=== PATIENT | male | born 1975 | race Caucasian/White ===

== ENCOUNTER → 2017-05-02 | Outpatient (CLI) | payer BC ==
[~2017-05-02] MED LIST: AMT50 PO; ATV1 PO; CALC500C3 PO; CETI10TA10 PO; CLR10 PO; CYCL10TA6 PO; EYED OPR; FLUT0.15 NAE; GABA-113 PO; METFTAB PO; MULT-506 PO; NORCO PO; PANT40TA PO; RXC5 PO
--- NOTE | 2017-05-02 09:57 | DIAGNOSTIC IMAGING REPORT ---
Soft tissue ultrasound of the left ELBOW REGION CLINICAL HISTORY: Left arm mass COMPARISON STUDY: None FINDINGS: Corresponding to the palpable abnormality, is a nonspecific irregularly marginated 8 x 3 x 8 mm hypoechoic focus within the subcutaneous tissues. This have a nonspecific ultrasound appearance. IMPRESSION: The patient's palpable abnormality, near the elbow, corresponds to a irregularly marginated hypoechoic 8 x 3 x 8 mm focus within the subcutaneous tissues. This lesion has a nonspecific ultrasonographic appearance. Further characterization is not possible ultrasonographically. Electronically signed by: Joe Lopez M.D. 05/02/2017 9:55 AM Dictated Date/Time: 05/02/2017 9:52 AM
== END | disposition home or self-care (01) ==
LOC: C.ULTR 09:21
PROVIDERS: ATTEND Family Medicine
DX: R22.30 Localized swelling, mass and lump, unspecified upper limb (principal)

== ENCOUNTER 2019-05-23 10:58 | Observation (INO) ==
[2019-05-23] MEDS ORDERED: NiCARDipine HCL INJ 2.5 MG/ML 10 ML AMP ONE (11:16)
[2019-05-23] MEDS ORDERED: HEPARIN (PORCINE) 1000 UNIT/ML 10 ML (CATH LAB USE ONLY) ONE ×2 (11:16→13:40)
[2019-05-23] MEDS ORDERED: fentaNYL citrate 100 MCG/2 ML VIAL ONE ×2 (11:17→13:48)
[2019-05-23] MEDS ORDERED: MIDAZOLAM HCL 1 MG/ML 2ML VIAL ONE ×2 (11:18→13:48)
[2019-05-23] MEDS ORDERED: NITROGLYCERIN/D5W 100MCG/ML 20ML SYR ONE (11:19)
[2019-05-23] MEDS ORDERED: ADENOSINE IV SOLN 3 MG/ML 20 ML VIAL IV ONE (12:45)
--- NOTE | 2019-05-23 12:55 | History & Physical Bridge Note ---
Date of Service May 23, 2019 History & Physical Bridge Note I have examined the patient, reviewed the History & Physical and in the interval since the performance of the History & Physical I have noted the following changes of clinical significance: no changes noted
--- NOTE | 2019-05-23 12:57 | Pre Anesthesia Assessment ---
Date of Service May 23, 2019 Pre Sedation Assessment Vital Signs Temp Pulse Resp BP Pulse Ox 05/23/19 11:19 98.2 F 90 18 133/87 98 Cardiovascular RRR, no murmur, no edema Respiratory normal respiratory effort, lungs clear to auscultation Pre-Sedation Airway Assessment Smoking Status: Former smoker Hx Sleep Apnea: No Hx Difficult Intubation: No Short, Thick Neck: No Thyromental Distance: > or= 3.5 Finger Breadths Oral Cavity: + WNL Mallampati Class: I ASA: ASA2 NPO Status Date of Last Intake of Fluids: 05/22/19 Date of Last Intake of Solid Food: 05/22/19 Procedure Planning Contraindications for Sedation: none Current Medications Reviewed: Yes Notes The planned sedation has been discussed with the patient. Informed Consent was obtained. I have identified the patient, determined the appropriateness of sedation and have assessed the patient immediately prior to the procedure. All medicine(s) and interventions are by my order.
[2019-05-23] MEDS ORDERED: ONDANSETRON INJ 2 MG/ML 2 ML VIAL IV PRN (14:11)
--- NOTE | 2019-05-23 14:11 | Post Anesthesia Assessment ---
Date of Service May 23, 2019 Post Sedation Assessment Vital Signs Temp Pulse Resp BP Pulse Ox 05/23/19 11:19 98.2 F 90 18 133/87 98 Recovery Score Activity: Moves 4 extremities Respiration: Deep Breath/Cough Circulation: +/-20% PreAnes Value Consciousness: Fully Awake Oxygen Saturation: O2 needed for >90% Discharge Sedation Level of Care: Fast Track Phase II Post Sedation Plan On clinical assessment, the patient appears to have tolerated the sedation without complications. Patient is recovering as anticipated. Patient will continue to be monitored by nursing and may be discharged when sedation discharge criteria are met per below protocol. Upon Completions of procedure and additional 15 minutes continue every 5 minute vital signs and the P.A.R. score; then discharge to a Phase I or Fast Track to [facility] II per the following guidelines: * Discharge Patient to appropriate Phase II area if PAR is 8 or greater or return to pre- procedure baseline. The post - procedure orders will be as directed. * If PAR score is less than 8 or not return to pre-procedure baseline then patient will follow Phase I monitoring till PAR is reached for Phase II. The Phase I may be done in procedure room or may call to secure a Phase I area. * If naloxone or flumazenil are used for reversal, hold in Phase I for continued monitoring from when last reversal dose was given for a minimum of 60 minutes or longer pending the nurse and/or physician discretion of patient condition before discharge to Phase II. Please call the Sedation Physician to re-evaluate and complete post-note for discharge to Phase II area. Do NOT discharge from procedure sedation or Phase 1 until post- sedation evaluation note is complete by procedure /sedation MD Sedation Discharge Instructions to be given to the patient at discharge to home.
[2019-05-23] MEDS ORDERED: NITROGLYCERIN SL 0.4 MG/TAB TAB SL PRN (14:15)
[2019-05-23] MEDS ORDERED: SODIUM CHLORIDE 0.9% 1000ML 1,000 ML IV SCH (14:15)
[2019-05-23] MEDS ORDERED: CYCLOBENZAPRINE HCL 10 MG TAB PO PRN (14:15)
[2019-05-23] MEDS: TICAGRELOR 90 MG TAB PO SCH (20:35)
[2019-05-23] MEDS: MAGNESIUM OXIDE 400 MG TAB PO SCH (20:36)
--- NOTE | 2019-05-23 21:57 | Cardiac Catheterization ---
[facility] Data: Supervisor/Port Director Cardiac Status Clinical evaluation leading to the procedure CAD Presenation: Non STEMI Anginal Classification: CCS IV Heart Failure: No Cardiogenic Shock within 24 Hours: No Cardiac Arrest within 24 Hours: No Imaging Studies Past 6 Months: Yes Stress Studies Past 6 Months: No Diagnostic Physicians Name: Jose Roberto Abreu MD Status: Elective Closure Device Percutaneous Entry Location: Radial Closure Device: Radial Band Recommendations: PCI without planned CABG PCI Indication: PCI for high risk Non-LIN Lesion Segment Name: mid LAD Culprit Artery: Yes Stenosis Prior to Rx (%): 70 Chronic Total Occlusion: No IVUS: Yes FFR: Yes Ratio: less than or equal to 0.75% Pre-Procedure TIFFANY Flow: 3 Previously Treated Lesion: No Lesion Complexity: High/C Lesion Length (mm): 33 Thrombus Present: No Bifurcation Lesion: Yes Guidewire Across Lesion: Stenosis Post-Procedure (%): 0 Post-Procedure TIFFANY Flow: 3 Devices(s) Deployed: Yes Yes Intraprocedure Events Significant Disection: No Perforation: No Cardiac Cath Procedure Full Procedure Date May 23, 2019 Pre-Procedure Diagnosis Pre-Procedure Diagnosis: CAD AUC Score AUC Score: 7 Post-Procedure Diagnosis Post-Procedure Diagnosis: Severe CAD and Successful PCI Procedure(s) Performed Procedure(s) Performed: Coronary Angiography, Drug Eluting Stent, IVUS and Fractional Flow [place] Training Technician Jose Roberto Abreu MD Ditcher Operator(s) Tarik Estimated Blood Loss Estimated Blood Loss: 10 Medication(s) Medication(s): Adenosine, Fentanyl, Heparin, Lidocaine 1%, Nicardipine, Nitroglycerin and Versed Summary of Findings Indication: Mr. Crowder is a 43-year-old male with a recent episode of ACS with minimal troponin elevation and questionable transient ST elevations while traveling. Underwent cardiac catheterization at an outside hospital which revealed moderate to severe mid LAD disease involving the bifurcation with a large first diagonal. Also reported to have ostial ramus disease. No evidence of plaque rupture on OCT imaging of mid LAD. Given to bypass surgery. Plan today to assess functional significance of mid LAD stenosis and if significant proceed with PCI of LAD. Access: 6 Fr right radial artery Catheters: EBU 3.5 guide Findings: LM -angiographically normal LAD -diffuse proximal to mid up to 60% disease. Distal luminal irregularities. Large first diagonal with 20% ostial stenosis. Ramus30 to 40% ostial stenosis, large caliber vessel Circumflex -moderate caliber vessel without significant disease FFR of LAD Left main cannulated with EBU 3.5 guide BMW wire placed in distal LAD ACIST catheter placed into mid LAD Pd/Pa 0.91 FFR 0.72 Decision made to proceed with PCI of LAD. -- PCI -- Antithrombotic therapy: Heparin, ticagrelor Procedure: Pro-water wire placed into first diagonal IVUS used to assess extent distribution of disease throughout vessel, vessel sizing. Moderate to severe disease from mid segment back to proximal vessel, mildly calcified. IVUS of diagonal showed minimal disease at ostium. Proximal to mid LAD stented with 2.75 x 38 mm Xience [place] drug-eluting stent Stent post-dilated with 3.5 noncompliant balloon IC vasodilators administered for spasm Repeat IVUS showed underexpanded stent proximally and stent postdilated with 4.0 NC Post procedure TIFFANY 3 flow, stent well expanded with minimal residual stenosis and no apparent cardiac complications. Mild stenosis at ostium of first diagonal with TIFFANY-3 flow. Arterial Closure: TR band Summary: 1. Severe single vessel coronary artery disease -60-70% diffuse proximal to mid LAD disease (FFR positive at 0.72). 40% ostial stenosis of ramus 2. Successful PCI of proximal to mid LAD with single drug-eluting stent (2.75 x 38 mm Xience [place]; postdilated with 4.0 NC proximally). Recommendations: To PCU for continued monitoring Continue dual-antiplatelet therapy with aspirin, ticagrelor for at least one year Continue statin, and ASCVD risk factor modification Consult cardiac Rehab Hemodynamics Rest Ao:: 117/75/96 Final Ao: 106/73/89 LV: -- Recommendations Recommendations: PCI without planned CABG Specimens Specimens: None Radiation Exposure (mGy) 2801 Contrast (mls) 155 Fluids (cc crystalloids) Fluids (cc crystalloids): 138 Drains Drains: None Anesthesia Moderate Procedural Complication(s) None Disposition PCU I attest to the content of the Intraoperative Record and any orders documented therein. Any exceptions are noted below.
[2019-05-24 06:44] LABS: Basophils # (auto) 0.06 K/uL (0-0.2); Eosinophils # (auto) 0.21 K/uL (0-0.5); Eosinophils % (auto) 3.4 %; Hematocrit (blood only) 42.2 % (42-52); Hemoglobin 14.6 g/dL (14.0-18.0); Immature Granulocytes # (auto) 0.01 K/uL (0.00-0.02); Immature Granulocytes % (auto) 0.2 %; Lymphocytes # (auto) 1.79 K/uL (1.2-3.4); Lymphocytes % (auto) 28.8 %; Mean Corpuscular Hemoglobin 32.8 pg (25-34); Mean Corpuscular Hgb Conc 34.6 g/dL (32-36); Mean Corpuscular Volume 94.8 fL (80-100); Mean Platelet Volume 9.3 fL (7.4-10.4); Monocytes # (auto) 0.49 K/uL (0.11-0.59); Monocytes % (auto) 7.9 %; Neutrophils # (auto) 3.66 K/uL (1.4-6.5); Neutrophils % (auto) 58.7 %; Platelet Count 201 K/uL (130-400); RDW Coefficient of Variation 12.9 % (11.5-14.5); RDW Standard Deviation 44.5 fL (36.4-46.3); Red Blood Count 4.45 M/uL (4.7-6.1); White Blood Count 6.22 K/uL (4.8-10.8)
[2019-05-24 07:09] VITALS: BP 117/83; TEMP 97.7; O2SAT 96
[2019-05-24 07:10] LABS: BUN Creatinine Ratio 11.3 (10-20); Calcium 8.8 mg/dl (8.5-10.1); Creatinine Clr Calc Pharmacy 133.4 ml/min; Est GFR (African American) 129.8; Potassium 4.1 mmol/L (3.5-5.1)
[2019-05-24] MEDS ORDERED: PANTOprazole 40 MG TAB PO SCH (09:00)
[2019-05-24] MEDS ORDERED: ASPIRIN 81 MG ECTAB PO SCH (09:00)
[2019-05-24] MEDS ORDERED: ATORVASTATIN 40 MG TAB PO SCH (09:00)
[2019-05-24] MEDS ORDERED: LORATADINE 10 MG TAB PO SCH (09:00)
[2019-05-24] MEDS ORDERED: CETIRIZINE HCL 10 MG TABLET PO SCH (09:00)
[2019-05-24] MEDS ORDERED: ISOSORBIDE MONO EXTENDED REL 30 MG TABCR PO SCH (09:00)
[2019-05-24] MEDS ORDERED: METOPROLOL SUCC 50MG EXT REL TAB PO SCH (09:00)
[2019-05-24] MEDS ORDERED: MULTIVITAMIN TAB PO SCH (09:00)
[2019-05-24] MEDS: MAGNESIUM OXIDE 400 MG TAB PO SCH (09:02)
[2019-05-24] MEDS: TICAGRELOR 90 MG TAB PO SCH (09:03)
[2019-05-24 09:44] VITALS: PULSE 79
--- NOTE | 2019-05-24 17:33 | Discharge Summary ---
Date of Service May 24, 2019 Admission HPI Per Admitting Provider Mr. Crowder is a 43-year-old male with a recent episode of ACS with minimal troponin elevation and questionable transient ST elevations while traveling. Underwent cardiac catheterization at an outside hospital which revealed moderate to severe mid LAD disease involving the bifurcation with a large first diagonal. Also reported to have ostial ramus disease. No evidence of plaque rupture on OCT imaging of mid LAD. Given to bypass surgery. Plan today to assess functional significance of mid LAD stenosis and if significant proceed with PCI of LAD. Specialty Data Cardiology 1. Severe single vessel coronary artery disease -60-70% diffuse proximal to mid LAD disease (FFR positive at 0.72). 40% ostial stenosis of ramus 2. Successful PCI of proximal to mid LAD with single drug-eluting stent (2.75 x 38 mm Xience [place]; postdilated with 4.0 NC proximally). Discharge Data Consultations 05/23/19 14:14 Consult Cardiac Rehabilitation Routine Procedures Performed Operation Date: 05/23/19 12:00 Actual Procedures s Drug Eluting Stent SGl Vessel - Akil Abreu MD s Cineradiography w/Routine Exam - Akil Abreu MD p Cath, Left with Cors and Vent - Akil Abreu MD s IVUS Coronary Single Vessel - Akil Abreu MD s Fraction Flow [place] SGL Ves - Akil Abreu MD Hospital Course (1) CAD (coronary artery disease): Planned FFR of known LAD disease was positive at 0.72. Proceeded with PCI of proximal mid LAD with single drug-eluting stent. Procedure uncomplicated. Patient admitted to telemetry service for observation. He remained hemodynamically and electrically stable overnight. He had no recurrent chest pain. Post procedure labs unchanged. No access site complications. He was discharged home on prior DAPT with aspirin, ticagrelor. Follow-up with Dr. Palomares and 2 to 3 weeks. Discharge Instructions Home Medications cetirizine [Zyrtec] 10 mg PO QAM 07/24/18 [History Confirmed 05/23/19] multivitamin 1 tab PO QAM 07/24/18 [History Confirmed 05/23/19] potassium 99 mg PO BID 07/24/18 [History Confirmed 05/23/19] aspirin 81 mg tablet,delayed release 81 mg PO DAILY 05/21/19 [History Confirmed 05/23/19] atorvastatin 80 mg tablet 80 mg PO DAILY #90 tab 05/21/19 [Rx Confirmed 05/23/19] isosorbide mononitrate ER 30 mg tablet,extended release 24 hr 30 mg PO DAILY tab 05/21/19 [History Confirmed 05/23/19] loratadine 10 mg tablet 10 mg PO DAILY 05/21/19 [History Confirmed 05/23/19] magnesium 250 mg tablet 250 mg PO BID tab 05/21/19 [History Confirmed 05/23/19] metoprolol succinate ER 50 mg tablet,extended release 24 hr 50 mg PO DAILY 05/21/19 [History Confirmed 05/23/19] nitroglycerin 0.4 mg sublingual tablet 0.4 mg SL Q5M PRN 05/21/19 [History Confirmed 05/23/19] pantoprazole 40 mg tablet,delayed release 40 mg PO DAILY 05/21/19 [History Confirmed 05/23/19] ticagrelor 90 mg tablet 90 mg PO BID 05/21/19 [History Confirmed 05/23/19] cyclobenzaprine 10 mg PO Q8 PRN 05/23/19 [History Confirmed 05/23/19]
== END 2019-05-24 10:47 | disposition home or self-care (01) ==
LOC: 2E 10:58 → CC 10:58